=== PATIENT | female | born 1990 ===

== ENCOUNTER 2017-03-27 14:30 | Outpatient (RCR) | payer SELFPAY | END 2017-04-05 | disposition home or self-care (01) | LOC: WCC 14:30 | DX: T86.821 Skin graft (allograft) (autograft) failure (principal); Z90.13 Acquired absence of bilateral breasts and nipples | CPT/HCPCS: G0277 ×2 ==

== ENCOUNTER 2017-03-27 14:46 | Outpatient (RCR) | payer OTHER | END 2017-04-05 | disposition home or self-care (01) | LOC: WCC 14:46 | DX: T86.821 Skin graft (allograft) (autograft) failure (principal); Z90.13 Acquired absence of bilateral breasts and nipples | CPT/HCPCS: G0277; G0463 ==